=== PATIENT | female | born 1990 | race Caucasian/White ===

== ENCOUNTER → 2017-03-12 | Outpatient (CLI) | payer OTHER ==
[~2017-03-12] MED LIST: PRENTAB26 PO
== END | disposition home or self-care (01) ==
LOC: C.PAPS 09:07
PROVIDERS: ATTEND Physician Assistant
DX: Z12.4 Encounter for screening for malignant neoplasm of cervix (principal)

== ENCOUNTER 2018-10-21 04:52 | Inpatient (IN) ==
[2018-10-21] MEDS ORDERED: BUPIVACAINE 0.25% 30 ML VIAL ONE (05:21)
[2018-10-21] MEDS ORDERED: ePHEDrine sulfate 50 MG/ML AMP ONE ×2 (05:21→05:25)
[2018-10-21] MEDS ORDERED: fentaNYL citrate 100 MCG/2 ML VIAL ONE (05:22)
[2018-10-21] MEDS ORDERED: fentaNYL 2MCG/ML ROPIV 1.25MG/ML 100 ML BAG EPI ONE (05:23)
[2018-10-21] MEDS ORDERED: LACTATED RINGER'S 1,000 ML IV PRN (05:25)
[2018-10-21] MEDS ORDERED: OXYTOCIN 30 UNITS/500ML NSS ONE (05:50)
[2018-10-21 05:51] LABS: Hematocrit (blood only) 36.1 % (37-47); Hemoglobin 12.4 g/dL (12.0-16.0); Mean Corpuscular Volume 82.4 fL (80-100); Mean Platelet Volume 10.4 fL (7.4-10.4); Platelet Count 199 K/uL (130-400); RDW Standard Deviation 42.3 fL (36.4-46.3); Red Blood Count 4.38 M/uL (4.2-5.4); White Blood Count 10.97 K/uL (4.8-10.8)
--- NOTE | 2018-10-21 05:52 | Anesthesiology Consultation ---
Date of Service October 21, 2018 Assessment & Plan (1) Encounter for pre-operative examination: Chart Review Chart Review: Patient NOT seen in Pre Admission Testing and Acceptable Risk for Labor Epidural Consults Requested none ASA ASA2 Proposed Anesthesia Anesthesia Type: Labor Epidural Risk / Benefits Reviewed With: PT / POA / Parent / Guardian, Accepts Plan and Informed Consent Obtained History Height/Weight Height: 5 ft 5 in Weight: 91.811 kg Allergies Allergy/AdvReac Type Severity Reaction Status Date / Time No Known Allergies Allergy Unverified 10/19/18 10:45 Medications Home Medications Medication Instructions Recorded Confirmed Last Taken 1 tab PO DAILY 10/04/18 10/21/18 10/20/18 vitamin,calcium,mmwwmjnq-mows-dfuzq acid tablet Past Medical History Medical History Abnormal biochemical finding on screening of mother, antepartum (Acute) Encounter for supervision of normal in multigravida in second trimester (Acute) Encounter for supervision of normal in multigravida in third trimester (Acute) History of tobacco use (Acute) Pain in joint of right shoulder (Acute) Acute mastitis of right breast Past Family History Family History Father Hypertension Other Heart disease Past Surgical History Surgical History H/O oral surgery S/P appendectomy Social History Smoking Status: Never smoker Hx Alcohol Use: No Hx Substance Use: No Physical Exam Vital Signs Last Vital Signs Temp 36.6 C 10/21/18 05:20 Pulse 75 10/21/18 05:25 Resp 18 10/21/18 05:20 BP 143/86 H 10/21/18 05:25
[2018-10-21 05:55] LABS: Mean Corpuscular Hgb Conc 34.3 g/dL (32-36)
[2018-10-21] MEDS: OXYTOCIN 30 UNITS/500 ML BAG IV PRN ×2 (06:08→06:46)
--- NOTE | 2018-10-21 06:29 | History & Physical Report ---
Date of Service October 21, 2018 Assessment & Plan (1) Normal labor: Pre-operative Diagnosis: at 40 1/7, meconium Post-operative Diagnosis: same Procedure: , repair of right labia and small first degree repair EBL: 400cc Anesthesia: local infiltration of lidocaine Procedure: The patient arrived to labor and delivery in active labor. She went from 5cm to 8cm to ant lip rapidly. She was in hands and knees. I was able to reduce the anterior lip. The patient pushed for 4 or 5 contractions to deliver a viable female infant in tracy position. I was unable to get the shoulder delivered easily so the patient was flipped over. The rest of the infant was then delivered without difficulty. The baby was vigorous. The nose and mouth were again bulb suctioned and the infant was placed in the maternal abdomen for drying and attention. Cord was clamped and cut at about one minute of life. Cord blood and segment obtained. Placenta manually extracted, intact with a three vessel cord. Uterus explored again after and no appreciable products noted. Cervix/sulci/rectum were intact. A first degree perineal laceration and right labial laceration were repaired in the normal standard fashion. Hemostasis obtained with dilute pitocin and fundal massage and IM hemobate. Apgars were 8/9. Mother and baby doing well at the end of the delivery. History of Present Illness Chief Complaint: Patient is a 27yowf with iup at 40 1/7 who presents to labor and delivery with contractions and lof. Patient notes contractions started at about 3:30 and likely ruptured shortly after. Some bleeding. Uncomfortale on arrival. uncomplicated. Meconium stained fluid noted on admission. A+/ab-ri/rprnr/hiv neg/hepb-/panorama neg/28 week gtt nl/gbs neg Primary Care Provider: Axel Gonzales MD Allergies Allergy/AdvReac Type Severity Reaction Status Date / Time No Known Allergies Allergy Unverified 10/19/18 10:45 Home Medications Home Medications Medication Instructions Recorded Confirmed Type 1 tab PO DAILY 10/04/18 10/21/18 History vitamin,calcium,lnejekqt-lmao-unasr acid tablet Patient History Medical History Encounter for supervision of normal in multigravida in third trimester (Acute) History of tobacco use (Acute) Pain in joint of right shoulder (Acute) Surgical History H/O oral surgery S/P appendectomy Family History Father Hypertension Other Heart disease Social History Preferred Language: Sami Communication Ability: Effective Center Medical Director Required: No Beliefs That Will Affect Care: None marital status: Current Living Situation: Spouse and Family Other Information That Helps Us Care for You: No Feels Safe at Home: Yes Safety Concerns: Feels Safe At This Time Smoking Status: Never smoker Second Hand Exposure: No ; Hx Alcohol Use: No Hx Substance Use: No Review of Systems All systems reviewed & are unremarkable except as noted in HPI & below Physical Exam Gastrointestinal (Abdomen): gravid Genitourinary: cx--5-6/+1 on admission by nursing toco--q2min efm--125 with mod variability, +accel, variable with contractions. Results & Data Vital Signs (Past 12 Hours) Vital Signs Temp Pulse Resp BP 10/21/18 06:10 96 H 152/91 H 10/21/18 06:03 95 H 144/93 H 10/21/18 05:56 18 10/21/18 05:30 18 10/21/18 05:25 75 143/86 H 10/21/18 05:20 36.6 C 18
[2018-10-21] MEDS ORDERED: CARBOPROST TROMETHAMINE 250 MCG/ML AMPUL IM ONE (06:31)
[2018-10-21] MEDS ORDERED: ACETAMINOPHEN 325 MG TAB PO PRN (06:31)
[2018-10-21] MEDS ORDERED: OXYCODONE/ACETAMINOPHEN 5mg/325mg TAB PO PRN (06:31)
[2018-10-21] MEDS: IBUPROFEN 600 MG TAB PO PRN ×2 (06:50→19:26)
[2018-10-21] MEDS ORDERED: SUPERCREAM 0.870% 15 GM JAR EXT PRN (07:01)
[2018-10-21] MEDS ORDERED: BENZOCAINE 20% AER SPR 82.5 GM CAN EXT PRN (07:01)
[2018-10-21] MEDS ORDERED: DIPHTHERIA/TETANUS/PERTUSSIS 0.5 ML SYR/VIAL IM ONE (07:01)
[2018-10-21] MEDS ORDERED: OXYTOCIN 30 UNITS/500 ML BAG IV PRN (07:01)
[2018-10-21] MEDS ORDERED: HYDROCORTISONE ACETATE 25 MG SUPP PR PRN (07:01)
[2018-10-21] MEDS ORDERED: BISACODYL 10 MG SUPP PR PRN (07:01)
[2018-10-21] MEDS: DOCUSATE SODIUM 100 MG CAP PO SCH ×2 (08:26→19:27)
[2018-10-21] MEDS: PRENATAL VITAMIN 1 TAB PO SCH (08:26)
[2018-10-22] MEDS: IBUPROFEN 600 MG TAB PO PRN (06:11)
[2018-10-22 06:33] LABS: Hematocrit (blood only) 32.5 % (37-47); Hemoglobin 10.8 g/dL (12.0-16.0)
--- NOTE | 2018-10-22 06:50 | Obstetrical Progress Note ---
Date of Service <Yesenia Shipley MD - Last Filed: 10/22/18 07:14> October 22, 2018 Assessment & Plan <Yesenia Shipley MD - Last Filed: 10/22/18 07:14> (1) Status post vaginal delivery: Hoda is a 27 yo on PPD 1 after at 40 w and 1d. - GBS - , Rh +, Rubella immune -Vitals reviewed: BP 131/90, afebrile. patient has had systolic BPs as high as 160 and diastolic values as high 102 since delivery; -patient is doing clinically well discharge instruction reviewed. We have asked patient to schedule an appointment 1 week from today for a blood pressure check - After discharge will have [address] Long. Subjective <Yesenia Shipley MD - Last Filed: 10/22/18 07:14> Ambulation: ambulating normally Voiding: no voiding problems Passing Gas:: Yes Diet Tolerance:: regular diet Lochia:: Moderate Feeding Type:: breast feeding Current Pain Level(1-10): 0 examined at bedside. patient notes she had several episodes of diarrhea after receiving the hemabate post-delivery; diarrhea has since resolved. Physical Exam <Yesenia Shipley MD - Last Filed: 10/22/18 07:14> General Appearance: Alert, oriented. No acute distress. Cardiac: Regular rate and rhythm, S1 and S2 appreciated. No murmurs/rubs/gallops. Respiratory: Clear to auscultation anterior and posteriorly, no wheezes/rales/rhonchi/crackles. No accessory muscle use. Symmetrical chest rise. Abdomen: Soft, nontender, nondistended. Normoactive bowel sounds throughout. Uterus: Uterine fundus firm, palpable 1 cm below umbilicus. Lower Extremities: No lower extremity edema. No calf pain on compression. Results & Data <Yesenia Shipley MD - Last Filed: 10/22/18 07:14> Vital Signs (Past 12 Hours) Vital Signs Temp Pulse Pulse Resp BP Pulse Ox 10/22/18 02:50 37 C 82 16 131/90 98 10/21/18 23:15 36.9 C 83 16 136/91 98 10/21/18 19:30 36.7 C 79 18 139/97 99 <aKte Long MD, FACOG - Last Filed: 10/22/18 07:23> Co-Signing Physician Notes Resident Physician Supervision Note: I was present with Dr. Shipley during the history and exam. I discussed the case with the resident and agree with the findings and plan as documented in the note. Any exceptions or clarifications are listed here: doing well, having occasional elevated bps. will plan 1 wk bp check in office. denies sx. reviewed d/c instructions and plan for 6wk pp check. ff 2 down, nt. Documented By: Kate Long MD, FACOG
[2018-10-22] MEDS: DOCUSATE SODIUM 100 MG CAP PO SCH (08:27)
[2018-10-22] MEDS: PRENATAL VITAMIN 1 TAB PO SCH (08:27)
[2018-10-22] MEDS ORDERED: BISACODYL 5 MG TABEC PO SCH (20:00)
== END 2018-10-22 10:50 | disposition home or self-care (01) | DRG 807 ==
LOC: OPB 04:52 → 4S1 04:59 → 4S2 09:18

== ENCOUNTER 2023-05-24 22:31 | Inpatient (IN) ==
--- NOTE | 2023-05-24 22:49 | History & Physical Report ---
Date of Service May 24, 2023 Assessment & Plan (1) Post term over 40 weeks: (2) PROM with onset of labor within 24 hours of rupture: Plan admit, iv. labs. needs cx exam, if cephalic and well applied can ambulate, rec pitocin if no labor pattern. pt already aware. fhts categ 1. epidural when desires. History of Present Illness Chief Complaint: leaking fluid Primary Care Provider: Negrita Jordan MD 32yo at 40+wks ega presents to L&D with gross srom, clear fluid. No vb. Was not having regular ctx but now having some. +FM. PNC c/b 1. 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 History of tobacco use Pain in joint of right shoulder Surgical History H/O oral surgery S/P appendectomy Family History Father Hypertension Circadian rhythm disorder Allergic rhinitis Mother Esophageal reflux Panic disorder without agoraphobia Uncle Prostate cancer Grandfather (Paternal) Myocardial infarction Heart disease Lung cancer Grandfather (Maternal) Heart disease Other Hyperlipidemia Denies family history of Ovarian cancer Breast cancer Colorectal cancer Social History Smoking Status: Former smoker Second Hand Exposure: No; Do You Dip or Chew Tobacco: No; Hx Alcohol Use: Yes Hx Substance Use: No Preferred Language: Tongan Communication Ability: Effective Computer Engineering Professor Required: No Beliefs That Will Affect Care: None marital status: marital status details: Marcus (33) [phone] Current Living Situation: Spouse Current Living Situation Comment: house with and kids current occupational status: employed current occupation: Operations for [employer] Other Information That Helps Us Care for You: No Feels Safe at Home: Yes Safety Concerns: Feels Safe At This Time Dental Care, Regularly: Yes Seatbelt Use: always Assistive Devices: Glasses Review of Systems as per Subjective / HPI Physical Exam Constitutional: WD/WN, vitals as above Neurologic: grossly normal Psychiatric: A+Ox3, euthymic affect Genitourinary: Manual OB Exam: + amniotic fluid (gross srom ) clear OB Exam Monitor Tracing: + external FHT monitor used, + external uterine monitor used ( irreg), + category I and + normal FHT variability Coding Level of Care Code None Diagnoses Post term over 40 weeks O48.0 PROM with onset of labor within 24 hours of rupture O42.00
[2023-05-24] MEDS ORDERED: LIDOCAINE 1% LOCAL 20 ML VIAL INFIL PRN (23:11)
[2023-05-24] MEDS ORDERED: OXYTOCIN 30 UNITS/NSS 30 UNITS/500 ML BAG IV PRN (23:11)
[2023-05-24] MEDS: LACTATED RINGER'S 1,000 ML IV PRN (23:30)
[2023-05-24 23:47] LABS: Hematocrit (blood only) 36.1 % (37.0-47.0); Hemoglobin 12.1 g/dl (12.0-16.0); Mean Corpuscular Hemoglobin 27.6 pg (25.0-34.0); Mean Corpuscular Hgb Conc 33.5 g/dL (32.0-36.0); Mean Corpuscular Volume 82.2 fL (80.0-100.0); Mean Platelet Volume 10.5 fL (9.4-12.4); Platelet Count 226 K/uL (130-400); RDW Coefficient of Variation 13.8 % (11.5-14.5); RDW Standard Deviation 40.8 fL (36.4-46.3); Red Blood Count 4.39 M/uL (4.20-5.40); White Blood Count 10.73 K/ul (4.8-10.8)
[2023-05-25] MEDS ORDERED: SODIUM CHLORIDE 0.9% PF INJ 10 ML VIAL EPI PRN (00:06)
[2023-05-25] MEDS ORDERED: NALOXONE HCL 0.4 MG/1 ML VIAL/CARP IV PRN (00:06)
[2023-05-25] MEDS ORDERED: fentaNYL citrate PF 100 MCG/2 ML VIAL EPI PRN (00:06)
[2023-05-25] MEDS ORDERED: NALOXONE HCL 1 MG in SODIUM CHLORIDE 0.9% 1,000 ML IV PRN (00:06)
[2023-05-25] MEDS ORDERED: BUPIVACAINE 0.25% PF 30 ML VIAL EPI PRN (00:06)
[2023-05-25] MEDS ORDERED: LIDOCAINE 2% MPF LOCAL 5 ML VIAL EPI PRN (00:06)
[2023-05-25] MEDS ORDERED: NALBUPHINE HCL 5 MG in SYRINGE 0 ML IV PRN (00:06)
[2023-05-25] MEDS ORDERED: diphenhydrAMINE 50 MG/ML VIAL IV PRN (00:06)
[2023-05-25] MEDS ORDERED: ePHEDrine sulfate 50 MG/ML AMP IV PRN (00:06)
[2023-05-25] MEDS ORDERED: fentANYL 2 MCG/ML BUPIVacaine 0.125%-NSS 100ML BAG EPI PRN (00:06)
[2023-05-25] MEDS ORDERED: ROPIVACAINE 0.5% PF 5 MG/ML 20 ML VIAL EPI PRN (00:06)
--- NOTE | 2023-05-25 00:06 | Anesthesiology Consultation ---
Date of Service May 25, 2023 Assessment & Plan (1) Encounter for pre-operative examination: Chart Review Chart Review: Patient NOT seen in Pre Admission Testing and Acceptable Risk for Labor Epidural Consults Requested none History Height/Weight Height: 5 ft 6 in Weight: 93.894 kg Allergies Allergy/AdvReac Type Severity Reaction Status Date / Time No Known Allergies Allergy Verified 05/24/23 22:57 Medications Home Medications Medication Instructions Recorded Confirmed Last Taken vit 168-iron 27 mg-folic 1 cap PO DAILY 10/09/22 05/24/23 05/24/23 acid 800 mcg-omega3 235 mg capsule (One-A-Day -1) Active Medications Generic Name Dose Route Start Last Admin Trade Name Freq PRN Reason Stop Dose Admin Lactated Ringer's 1,000 mls @ 125 mls/hr 05/24/23 23:11 05/24/23 23:30 Lr IV 05/26/23 23:10 999 mls/hr .Q8H PRN Administration L&D Protocol Protocol Past Medical History Medical History 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 History of tobacco use Pain in joint of right shoulder Past Family History Family History Father Hypertension Circadian rhythm disorder Allergic rhinitis Mother Esophageal reflux Panic disorder without agoraphobia Uncle Prostate cancer great Grandfather (Paternal) Myocardial infarction Heart disease Lung cancer Grandfather (Maternal) Heart disease Other Hyperlipidemia Denies family history of Ovarian cancer Breast cancer Colorectal cancer Past Surgical History Surgical History H/O oral surgery S/P appendectomy Social History Smoking Status: Former smoker Do You Dip or Chew Tobacco: No Hx Alcohol Use: Yes Hx Substance Use: No Physical Exam Vital Signs Last Vital Signs Temp 98.6 F 05/24/23 23:00 Pulse 99 H 05/25/23 00:04 Resp 18 05/24/23 23:00 BP 136/87 05/24/23 22:50 Pulse Ox 100 05/25/23 00:04 O2 Del Method Room Air 05/24/23 23:00 Testing Laboratory Results 05/24/23 23:24
[2023-05-25] MEDS: BUPIVACAINE 0.25% PF 30 ML VIAL ONE (00:29)
[2023-05-25] MEDS: LIDOCAINE 2%/EPINEPHRINE 1:200,000 20 ML PF ONE (00:30)
[2023-05-25] MEDS: fentANYL 2 MCG/ML BUPIVacaine 0.125%-NSS 100ML BAG ONE (00:31)
[2023-05-25] MEDS: fentaNYL citrate PF 100 MCG/2 ML VIAL EPI STA (00:42)
[2023-05-25] MEDS: BUPIVACAINE 0.25% PF 30 ML VIAL EPI STA (00:42)
[2023-05-25] MEDS: LIDOCAINE 2%/EPINEPHRINE 1:200,000 20 ML PF EPI STA (00:43)
[2023-05-25] MEDS: SODIUM CHLORIDE 0.9% PF INJ 10 ML VIAL EPI STA (00:43)
[2023-05-25] MEDS: SODIUM CHLORIDE 0.9% PF INJ 10 ML VIAL ONE (00:46)
[2023-05-25] MEDS: ePHEDrine sulfate 50 MG/ML AMP ONE (00:46)
[2023-05-25] MEDS: fentaNYL citrate PF 100 MCG/2 ML VIAL ONE (00:46)
[2023-05-25] MEDS: OXYTOCIN 30 UNITS/NSS 30 UNITS/500 ML BAG IV PRN (01:32)
--- NOTE | 2023-05-25 01:36 | Delivery Summary ---
Vaginal Delivery Summary Date of Service May 25, 2023 Vaginal Delivery Summary The patient dilated to complete and pushed to deliver a viable male Apgars 8 and 9 via over intact perineum. Mouth and nose bulb suctioned at perineum. Shoulders and body delivered with ease. Infant was vigorous and crying at . Cord clamped at 30 seconds of life and infant to maternal abdomen where the cord was then doubly clamped and cut. Placenta delivered spontaneously and intact, three-vessel cord. Hemostasis achieved with dilute pitocin and uterine massage and drainage of the bladder for approximately 300 cc under sterile conditions. Cervix and sulci intact. EBL 300 cc. Mother and baby stable in recovery. [facility] Vaginal Delivery Charge Delivery Type Details:
[2023-05-25] MEDS ORDERED: oxyCODONE/ACETAMINOPHEN 5mg/325mg TAB PO PRN (01:56)
[2023-05-25] MEDS ORDERED: OXYTOCIN 30 UNITS/NSS 30 UNITS/500 ML BAG IV PRN (01:56)
[2023-05-25] MEDS ORDERED: ACETAMINOPHEN 325 MG TAB PO PRN (01:56)
[2023-05-25] MEDS ORDERED: HYDROCORTISONE ACETATE 25 MG SUPP PR PRN (01:56)
[2023-05-25] MEDS: OXYTOCIN 20 UNITS/LR 1,002 ML IV SCH (02:17)
[2023-05-25] MEDS: DIPHTHER/TETAN/PERTUS Vaccine (Tdap, Adol/Adult) 0.5mL IM ONE (02:20)
[2023-05-25 02:23] LABS: Albumin Globulin Ratio 1.3 (0.9-2); Albumin Level 3.2 gm/dl (3.4-5.0); BUN Creatinine Ratio 22.2 (10-20); Bilirubin,Total 0.2 mg/dl (0.2-1.0); Creatinine Clr Calc Pharmacy 171.1 ml/min; Est GFR (African American) 143.7 ml/min; Globulin 2.5 gm/dl (2.5-4.0); Total Protein 5.7 gm/dl (6.0-8.3)
[2023-05-25] MEDS: IBUPROFEN 600 MG TAB PO PRN (03:47)
[2023-05-25] MEDS: BENZOCAINE 20% SPRY 85 APPLN/85 GM CAN EXT PRN (05:37)
[2023-05-25] MEDS: DOCUSATE SODIUM 100 MG CAP PO SCH (08:16)
[2023-05-25] MEDS: PRENATAL VITAMIN 1 TAB PO SCH (08:16)
--- NOTE | 2023-05-25 08:42 | Anesthesia Procedure Note ---
Date of Service May 25, 2023 Anesthesia Post Epidural Note Vital Signs Vital Signs: Temp Pulse Resp BP Pulse Ox O2 Del Method 36.4 C L 84 18 142/87 H 99 Room Air 05/25/23 04:00 05/25/23 04:00 05/25/23 04:00 05/25/23 04:00 05/25/23 04:00 05/25/23 04:00 Pain Intensity Bilateral Abdomen: Pain Intensity: 5 Notes Mental Status: alert / awake / arousable and participated in evaluation Nausea / Vomiting: adequately controlled Pain: adequately controlled Airway Patency, RR, SpO2: stable & adequate BP & HR: stable & adequate Hydration State: stable & adequate Neuraxial Anesthesia: was administered and sensory block is resolving Anesthetic Complications: no major complications apparent Epidural: Removed without complications and With tip intact
[2023-05-25] MEDS: bisacodyL 10 MG SUPP PR PRN (15:12)
--- NOTE | 2023-05-26 07:51 | Obstetrical Progress Note ---
Date of Service <Loida Castaneda MD - Last Filed: 05/26/23 07:51> May 26, 2023 Assessment & Plan <Loida Castaneda MD - Last Filed: 05/26/23 07:51> (1) Encounter for assessment: Plan Patient with the above mentioned history and findings was evaluated at bedside and found awake, alert, oriented in all spheres, afebrile, and in no acute distress. Vital signs showed no fever and blood pressures remained stable. Her blood type is A positive and most recent hemoglobin is adequate at 12.1 g/dL. Serologies are neg for GBS and patient is Rubella immune. Overall, patient is doing well clinically and meeting the desired milestone for her course. Therefore, will discharge patient today. Patient was counselled on discharge instructions. She is to make an appointment with her OB for 6 weeks after discharge for follow up evaluation. All questions were answered. <Nilton Low MD - Last Filed: 05/28/23 16:39> (1) Encounter for assessment: Subjective <Loida Castaneda MD - Last Filed: 05/26/23 07:51> Hoda is a 32 y/o female who is now PPD # 1 following at 39 5/7 weeks. Reports feeling well overall this morning. Refers mild abdominal cramping & 1/10 pain well managed on analgesics. Voiding spontaneously. Tolerating meals overnight and able to ambulate some. Passing gas and has had bowel movements. Some persistent lochia with some improvement this morning. . Constitutional: no fever, no chills or no sweats Denies shortness of breath or difficulty breathing Cardiovascular: no chest pain or no palpitations Breast: no breast pain Genitourinary (female): no dysuria Neurologic: no headache(s) Denies changes in vision Physical Exam <Loida Castaneda MD - Last Filed: 05/26/23 07:51> General: Alert. Oriented to person, time, and place. Afebrile. No acute distress. Eyes: pupils equal and reactive to light bilaterally, extraocular movements intact. Cardiac: Regular rate and rhythm, no murmurs/rubs/gallops. Respiratory: Clear to auscultation bilaterally a/p, no wheezes/rales/rhonchi. No increased work of breathing. Symmetrical chest rise. No respiratory distress. Abdomen: Soft, nontender, nondistended. Bowel sounds present. Uterus: Uterine fundus firm, nontender, and palpable below umbilicus. Lower Extremities: No lower extremity edema or swelling. No deep calf pain. Pola's negative bilaterally. Psych: Euthymic affect. Mood and affect congruence. Regular speech rate and content. Results & Data <Loida Castaneda MD - Last Filed: 05/26/23 07:51> Vital Signs (Past 12 Hours) Vital Signs Temp Pulse Resp BP Pulse Ox O2 Del Method 05/25/23 23:00 36.3 C L 90 16 125/82 98 Room Air 05/25/23 20:50 36.4 C L 73 17 147/93 H 100 Room Air Supervising Physician <Nilton Low MD - Last Filed: 05/28/23 16:39> Co-Signing Physician Notes Patient seen and evaluated with resident and agree with the above findings and plan. Stable for discharge
== END 2023-05-26 13:06 | disposition home or self-care (01) | DRG 807 ==
LOC: OPB 22:31 → 4S1 22:33 → 4E2 05-25 03:50
DX: Z37.0 Single live birth; Z87.891 Personal history of nicotine dependence; Z3A.39 39 weeks gestation of pregnancy; O42.00 Premature rupture of membranes, onset of labor within 24 hours of rupture, unspecified weeks of gestation